=== PATIENT | female | born 1990 | race Two or more races ===

== ENCOUNTER → 2017-10-18 11:52 | Outpatient (CLI) | payer OTHER ==
[~2017-10-18] VITALS: Ht 152.4 cm; Wt 68.0 kg
[~2017-10-18 11:52] MED LIST: CATAFLAM50 MG PO; CONEX TABLET1 EACH PO; DECADRON P4 MG/ML-1M IH; FLEXERIL10 MG PO; TORADOL60 MG IM
== END | disposition home or self-care (01) ==
LOC: PPHC 11:52
DX: J06.9 Acute upper respiratory infection, unspecified (principal); R05 Cough; J02.9 Acute pharyngitis, unspecified